=== PATIENT | female | born 1965 ===

== ENCOUNTER 2017-09-19 09:09 | Day surgery (SDC) | payer OTHER ==
[~2017-09-19 09:09] MED LIST: PROPOFOL 200 MG INJ
[2017-09-19] MEDS ORDERED: CIPROFLOXACIN 400MG/D5W 0 ML (10:00)
[2017-09-19] MEDS: CIPROFLOXACIN 400MG/D5W 200 ML IVPB (10:26)
[2017-09-19] MEDS ORDERED: ACETAMINOPHEN 1000MG/100ML IV 100 ML (11:21)
[2017-09-19] MEDS ORDERED: CIPROFLOXACIN 400MG/D5W 200 ML (11:21)
[2017-09-19] MEDS ORDERED: DEXAMETHASONE 4 MG/ML 1 ML INJ (11:23)
[2017-09-19] MEDS ORDERED: MIDAZOLAM 1 MG/ML 2 ML INJ (11:23)
[2017-09-19] MEDS ORDERED: ONDANSETRON 4 MG INJ (11:23)
[2017-09-19] MEDS ORDERED: FENTAnyl 50 MCG/ML VIAL (11:27)
[2017-09-19] MEDS ORDERED: FUROSEMIDE 20 MG INJ (12:26)
[2017-09-19] MEDS ORDERED: HYDROmorphONE (0.2 MG/ML) 10ML SYG IV ×3 (13:00)
[2017-09-19] MEDS ORDERED: ONDANSETRON 4 MG INJ IV ×2 (13:00)
[2017-09-19] MEDS ORDERED: OXYCODONE/ACETAMINOPHEN (5/325) TAB PO ×2 (13:00)
[2017-09-19] MEDS ORDERED: ACETAMINOPHEN 325 MG TAB (15:15)
[2017-09-19] MEDS: ACETAMINOPHEN 325 MG TAB PO (15:17)
[2017-09-19] MEDS ORDERED: IBUPROFEN 600 MG TAB PO (18:00)
== END 2017-09-19 16:38 | disposition home or self-care (01) ==
LOC: SDS 09:09
DX: N20.0 Calculus of kidney (principal); E11.9 Type 2 diabetes mellitus without complications; J45.909 Unspecified asthma, uncomplicated; Z85.6 Personal history of leukemia
CPT/HCPCS: 52310; 87086